=== PATIENT | female | born 1950 | race Two or more races ===

== ENCOUNTER 2021-08-07 05:00 | Inpatient (IN) | payer OTHER ==
[~2021-08-07] VITALS: Ht 30.5 cm; Wt 60.1 kg
[2021-08-07 05:00] VITALS: BP 150/88
[2021-08-07] MEDS ORDERED: cloNIDine HCL 0.1 MG TAB PO PRN (06:15)
[2021-08-07] MEDS ORDERED: DEXTROSE (50%) 50ML SYRG IV PRN (06:15)
[2021-08-07] MEDS ORDERED: ONDANSETRON HCL 4 MG/2 ML VIAL IV PRN (06:15)
[2021-08-07] MEDS ORDERED: TEMAZEPAM 15 MG CAP PO PRN (06:15)
[2021-08-07] MEDS ORDERED: AMLO-489 PO (06:36)
[2021-08-07] MEDS ORDERED: ATOR10TA PO (06:36)
[2021-08-07] MEDS ORDERED: CARV3.1240 PO (06:36)
[2021-08-07] MEDS: ACCU-CHEK COMFORT CURVE STRIP VI SCH ×4 (06:45→21:52)
[2021-08-07] MEDS: InsuLIN REG 1unit/0.01ml Soln (100units/ml) SC SCH ×4 (06:46→21:55)
[2021-08-07 08:12] LABS: Basophils # (auto) 0 10 ^3/uL (0-0.2); Basophils % (auto) 0.1 % (0.0-2.0); Eosinophils # (auto) 0.1 10 ^3/uL (0-0.8); Hematocrit 28.7 % (36.0-46.0); Hemoglobin 9.4 g/dL (12.2-16.2); Lymphocytes # (auto) 1.2 10 ^3/uL (0.4-5.4); Mean Corpuscular Hemoglobin 28.1 pg (28.0-32.0); Mean Corpuscular Hgb Conc. 32.8 g/dL (32.0-36.0); Mean Corpuscular Volume 85.6 fL (80.0-100.0); Monocytes # (auto) 0.4 10 ^3/uL (0-1.3); Monocytes % (auto) 4.4 % (0.0-12.0); Neutrophils # (auto) 7.8 10 ^3/uL (1.6-8.6); Neutrophils % (auto) 81.5 % (37.0-80.0); Nucleated Red Blood Cells % 0.1 %; Red Blood Cells 3.36 10^6/uL (4.0-5.20); Red Cell Distribution Width 14.8 % (11.8-14.3); White Blood Cell 9.6 10^3/uL (4.4-10.8)
[2021-08-07 08:31] LABS: INR 1.07 (0.9-1.15); Partial Thromboplastin Time 33.3 sec (23.6-33.0)
[2021-08-07 09:00] VITALS: BP 139/84
[2021-08-07 09:05] LABS: BUN/Creatinine Ratio 24.6; Calcium 9.1 mg/dL (8.5-10.1)
[2021-08-07 09:09] LABS: Albumin 2.4 g/dL (3.4-5.0); Bilirubin, Total 0.3 mg/dL (0.2-1.0); Potassium 3.8 mmol/L (3.5-5.1); Total Protein 7.4 g/dL (6.4-8.2)
[2021-08-07] MEDS: amLODIPine BESYLATE 5 MG TAB PO SCH (10:10)
[2021-08-07] MEDS: ENOXAPARIN SOD 40 MG/0.4 ML SYRINGE SC SCH (10:10)
[2021-08-07] MEDS: CARVEDILOL 12.5 MG TAB PO SCH ×2 (10:10→21:39)
[2021-08-07 13:00] VITALS: BP 135/74
[2021-08-07] MEDS ORDERED: MORPHINE SULFATE INJECTION 2 MG/ML SYRG IV PRN (14:30)
[2021-08-07] MEDS ORDERED: NITROGLYCERIN 0.4 MG SL TAB SL PRN (14:30)
[2021-08-07] MEDS ORDERED: ASPirin-EC 81 mg tab PO ONE (14:30)
[2021-08-07 16:44] VITALS: BP 125/70
[2021-08-07] MEDS: Glucerna Carbsteady SHAKE Vanilla 8oz PO SCH (17:49)
[2021-08-07 20:54] LABS: Cholesterol 172 mg/dL (< 200); Triglycerides 142 mg/dL (< 150)
[2021-08-07 20:57] LABS: HDL Cholesterol 32 mg/dL (40-59); LDL Cholesterol 93 mg/dL (< 100)
[2021-08-07] MEDS: ATORVASTATIN 20 MG TAB PO SCH (21:37)
[2021-08-07] MEDS: ACETAMINOPHEN 325 MG TAB PO PRN (21:38)
[2021-08-07] MEDS: DOCUSATE SOD 100 MG CAP PO SCH (21:39)
[2021-08-07] MEDS: CLOTRIMAZOLE 1% RIGHT EAR SCH (21:40)
[2021-08-07 21:42] VITALS: BP 143/81
[2021-08-07] MEDS: SODIUM CHLOR 0.9% PF (SALINE LOCK) 10ML VIAL/SYR IV SCH (21:45)
[2021-08-08 05:03] VITALS: BP 139/74
[2021-08-08] MEDS: SODIUM CHLOR 0.9% PF (SALINE LOCK) 10ML VIAL/SYR IV SCH ×3 (05:53→22:28)
[2021-08-08] MEDS: CLOTRIMAZOLE 1% RIGHT EAR SCH ×2 (05:54→21:57)
[2021-08-08] MEDS: ACCU-CHEK COMFORT CURVE STRIP VI SCH ×4 (06:03→21:56)
[2021-08-08] MEDS: InsuLIN REG 1unit/0.01ml Soln (100units/ml) SC SCH ×4 (06:03→22:27)
[2021-08-08] MEDS: ACETAMINOPHEN 325 MG TAB PO PRN ×3 (06:05→18:13)
[2021-08-08 09:00] VITALS: BP 125/74
[2021-08-08] MEDS: Glucerna Carbsteady SHAKE Vanilla 8oz PO SCH ×2 (09:33→17:58)
[2021-08-08] MEDS: DOCUSATE SOD 100 MG CAP PO SCH ×2 (09:33→21:55)
[2021-08-08] MEDS: CARVEDILOL 12.5 MG TAB PO SCH ×2 (09:34→21:56)
[2021-08-08] MEDS: ASPirin-EC 81 mg tab PO SCH (09:34)
[2021-08-08] MEDS: CLOPIDOGREL BISULFATE 75 MG TAB PO SCH (09:35)
[2021-08-08] MEDS: amLODIPine BESYLATE 5 MG TAB PO SCH (09:35)
[2021-08-08] MEDS: ENOXAPARIN SOD 40 MG/0.4 ML SYRINGE SC SCH (09:36)
[2021-08-08] MEDS ORDERED: GADOTERATE MEG 7.5 MMOL/15ml INJ (0.5MMOL/ml) IV ONE (11:45)
[2021-08-08 12:27] VITALS: BP 122/70
[2021-08-08] MEDS: guaiFENesin-DM 100/10mg/5ml SYR PO PRN (12:58)
[2021-08-08 17:06] VITALS: BP 135/73
[2021-08-08] MEDS: ATORVASTATIN 20 MG TAB PO SCH (21:55)
[2021-08-08 22:00] VITALS: BP 138/78
[2021-08-09] MEDS: ACETAMINOPHEN 325 MG TAB PO PRN ×2 (01:24→08:43)
[2021-08-09 05:12] VITALS: BP 136/79
[2021-08-09] MEDS: ACCU-CHEK COMFORT CURVE STRIP VI SCH ×4 (06:03→22:13)
[2021-08-09] MEDS: InsuLIN REG 1unit/0.01ml Soln (100units/ml) SC SCH ×4 (06:03→22:00)
[2021-08-09] MEDS: SODIUM CHLOR 0.9% PF (SALINE LOCK) 10ML VIAL/SYR IV SCH ×3 (06:04→22:12)
[2021-08-09] MEDS: CLOTRIMAZOLE 1% RIGHT EAR SCH ×2 (06:04→22:19)
[2021-08-09 08:00] VITALS: BP 133/73
[2021-08-09] MEDS: Glucerna Carbsteady SHAKE Vanilla 8oz PO SCH ×2 (08:00→17:57)
[2021-08-09] MEDS: CLOPIDOGREL BISULFATE 75 MG TAB PO SCH (08:52)
[2021-08-09] MEDS: DOCUSATE SOD 100 MG CAP PO SCH ×2 (08:52→22:18)
[2021-08-09] MEDS: guaiFENesin-DM 100/10mg/5ml SYR PO PRN ×3 (08:52→22:32)
[2021-08-09] MEDS: CARVEDILOL 12.5 MG TAB PO SCH ×2 (08:53→22:19)
[2021-08-09] MEDS: amLODIPine BESYLATE 5 MG TAB PO SCH (08:53)
[2021-08-09] MEDS: ENOXAPARIN SOD 40 MG/0.4 ML SYRINGE SC SCH (08:54)
[2021-08-09] MEDS: ASPirin-EC 81 mg tab PO SCH (08:54)
[2021-08-09] MEDS: HYDROcodone-ACET 5/325MG TAB PO PRN ×3 (12:58→20:12)
[2021-08-09 13:00] VITALS: BP 116/72
[2021-08-09 16:46] VITALS: BP 136/83
[2021-08-09] MEDS: FERROUS SULFATE 325mg EC TAB PO SCH (17:57)
[2021-08-09 21:52] VITALS: BP 134/79
[2021-08-09] MEDS: ATORVASTATIN 20 MG TAB PO SCH (22:18)
[2021-08-10 04:31] VITALS: BP 141/78
[2021-08-10] MEDS: SODIUM CHLOR 0.9% PF (SALINE LOCK) 10ML VIAL/SYR IV SCH ×3 (06:00→21:14)
[2021-08-10] MEDS: ACCU-CHEK COMFORT CURVE STRIP VI SCH ×4 (06:33→21:15)
[2021-08-10] MEDS: InsuLIN REG 1unit/0.01ml Soln (100units/ml) SC SCH ×4 (06:34→21:29)
[2021-08-10] MEDS: CLOTRIMAZOLE 1% RIGHT EAR SCH ×2 (06:34→21:15)
[2021-08-10] MEDS: HYDROcodone-ACET 5/325MG TAB PO PRN ×3 (06:40→21:16)
[2021-08-10 09:00] VITALS: BP 139/85
[2021-08-10] MEDS: ASPirin-EC 81 mg tab PO SCH (09:10)
[2021-08-10] MEDS: FERROUS SULFATE 325mg EC TAB PO SCH ×2 (09:11→16:57)
[2021-08-10] MEDS: CLOPIDOGREL BISULFATE 75 MG TAB PO SCH (09:11)
[2021-08-10] MEDS: CARVEDILOL 12.5 MG TAB PO SCH ×2 (09:11→21:15)
[2021-08-10] MEDS: DOCUSATE SOD 100 MG CAP PO SCH ×2 (09:11→21:14)
[2021-08-10] MEDS: amLODIPine BESYLATE 5 MG TAB PO SCH (09:11)
[2021-08-10] MEDS: ENOXAPARIN SOD 40 MG/0.4 ML SYRINGE SC SCH (09:13)
[2021-08-10] MEDS: Glucerna Carbsteady SHAKE Vanilla 8oz PO SCH ×2 (09:14→16:57)
[2021-08-10] MEDS ORDERED: CLOPIDOGREL BISULFATE 75 MG TAB PO SCH (10:00)
[2021-08-10 13:00] VITALS: BP 131/73
[2021-08-10 17:00] VITALS: BP 143/69
[2021-08-10] MEDS: ATORVASTATIN 20 MG TAB PO SCH (21:15)
[2021-08-10 22:00] VITALS: BP 139/82
[2021-08-11 05:00] VITALS: BP 129/77
[2021-08-11] MEDS: ACCU-CHEK COMFORT CURVE STRIP VI SCH ×2 (06:32→11:22)
[2021-08-11] MEDS: CLOTRIMAZOLE 1% RIGHT EAR SCH (06:32)
[2021-08-11] MEDS: SODIUM CHLOR 0.9% PF (SALINE LOCK) 10ML VIAL/SYR IV SCH (06:32)
[2021-08-11] MEDS: InsuLIN REG 1unit/0.01ml Soln (100units/ml) SC SCH ×2 (06:33→11:24)
[2021-08-11 08:30] VITALS: BP 146/86
[2021-08-11] MEDS: FERROUS SULFATE 325mg EC TAB PO SCH (08:40)
[2021-08-11] MEDS: ASPirin-EC 81 mg tab PO SCH (08:41)
[2021-08-11] MEDS: DOCUSATE SOD 100 MG CAP PO SCH (08:41)
[2021-08-11] MEDS: Glucerna Carbsteady SHAKE Vanilla 8oz PO SCH (08:41)
[2021-08-11] MEDS: amLODIPine BESYLATE 5 MG TAB PO SCH (08:42)
[2021-08-11] MEDS: CLOPIDOGREL BISULFATE 75 MG TAB PO SCH (08:42)
[2021-08-11] MEDS: ENOXAPARIN SOD 40 MG/0.4 ML SYRINGE SC SCH (08:43)
[2021-08-11] MEDS: CARVEDILOL 12.5 MG TAB PO SCH (10:00)
[2021-08-11] MEDS: HYDROcodone-ACET 5/325MG TAB PO PRN (11:00)
[2021-08-11 12:30] VITALS: BP 148/79
== END 2021-08-11 13:55 | disposition short-term general hospital (02) | DRG 64 ==
LOC: WEST WING 05:00 → TELE-WESTW 14:26 → WEST WING 08-09 10:57
PROVIDERS: ADMIT Nurse Practitioner; ATTEND Internal Medicine
DX: I63.511 Cerebral infarction due to unspecified occlusion or stenosis of right middle cerebral artery (principal); E43 Unspecified severe protein-calorie malnutrition; N39.0 Urinary tract infection, site not specified; G81.94 Hemiplegia, unspecified affecting left nondominant side; C71.9 Malignant neoplasm of brain, unspecified; H66.91 Otitis media, unspecified, right ear; I10 Essential (primary) hypertension; F17.200 Nicotine dependence, unspecified, uncomplicated; E11.65 Type 2 diabetes mellitus with hyperglycemia; E78.5 Hyperlipidemia, unspecified; Z20.822 Contact with and (suspected) exposure to COVID-19; Z90.49 Acquired absence of other specified parts of digestive tract; Z79.02 Long term (current) use of antithrombotics/antiplatelets; Z79.82 Long term (current) use of aspirin; Z79.899 Other long term (current) drug therapy; Z82.3 Family history of stroke; Z82.49 Family history of ischemic heart disease and other diseases of the circulatory system; Z83.3 Family history of diabetes mellitus; Z68.21 Body mass index [BMI] 21.0-21.9, adult
CPT/HCPCS: 36415; 70551; 70553; 80053; 80061; 82306; 82607; 82746; 82962; 83036; 83540; 83550; 84484; 85025; 85610; 85730; 87081; 93306; 93886; 97163; G0378; J1815